=== PATIENT | male | born 1965 | race Two or more races ===

== ENCOUNTER 2020-06-20 06:44 | Emergency (ER) | payer OTHER ==
[~2020-06-20] VITALS: Ht 175.3 cm; Wt 86.2 kg
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
--- NOTE | 2020-06-20 07:29 | NUR ---
report given to bridget joyner for danika
[2020-06-20] MEDS ORDERED: ACETAMINOPHEN W/ CODEINE#3 1 EA TABLET ONE (07:52)
[2020-06-20] MEDS: ACETAMINOPHEN W/ CODEINE#3 1 EA TABLET PO ONE (07:54)
[2020-06-20 08:41] VITALS: BP 145/81
--- NOTE | 2020-06-20 08:42 | NUR ---
Patient discharged to home in stable condition. Written and verbal after care instructions given. Patient verbalizes understanding of instruction.
== END 2020-06-20 08:42 | disposition home or self-care (01) ==
LOC: ER 06:46
DX: S16.1XXA Strain of muscle, fascia and tendon at neck level, initial encounter (principal); S50.12XA Contusion of left forearm, initial encounter; I10 Essential (primary) hypertension; E11.9 Type 2 diabetes mellitus without complications; V49.69XA Unspecified car occupant injured in collision with other motor vehicles in traffic accident, initial encounter; Y93.89 Activity, other specified; Y92.89 Other specified places as the place of occurrence of the external cause; Y99.8 Other external cause status
CPT/HCPCS: 70450-TC; 71045-TC; 72125-TC